=== PATIENT | female | born 1990 | race Caucasian/White ===

== ENCOUNTER 2024-09-02 15:55 | Emergency (ER) | payer OTHER, SELFPAY ==
--- OUTSIDE RECORDS SUMMARY | 2024-09-02 16:02 | XMS_ITS | Clinical Summary ---
Author Organization [facility] Healthcare Address [address] [place] [address] Care Team Providers Care Coordinate Measuring Machine Operator Name Role Phone Yo Bennett MD Primary Care Provider [phone] Lucy Yeboah NP Unavailable [phone] Allergies No known active allergies Medications lamoTRIgine (LaMICtal) 25 MG tabletIndicatio ns:Partial epilepsy (CMS/HCC) Take 1 tablet (25 mg) by mouth in the morning and 1 tablet (25 mg) before bedtime. 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 Assessment & Plan (02/06/2024 12:03 PM EST): Contacted DEJAH, pt can be seen, pt instructed to call and schedule Restart lamictal at 25mg daily for 14 days then increase to BID Fu in 6 weeks Advised of stressor, lack of sleep, caffiene can aggravate as well 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 Options for quitting smoking include: cold turkey, hypnosis, acupuncture, nicotine replacement meds (gum, lozenges, and patches), Buproprion, and Varenicline. At this time pt is encouraged to evaluate their goals for wanting to quit smoking, and reach out to provider when ready to start this process Encounters Date Type Department Care Team Description 08/31/2024 Refill [facility] [address] [place] [address] Lucy Yeboah NP Partial epilepsy ([facility]) 08/18/2024 Telephone DEJAH GANT [address] [address] Lina Daigle NP from Last 3 Months Immunizations Immunization Administration Dates Next Due DTaP 10/07/1995, 5,10/27/1993,1993, 2 HPV, Quadrivalent 07/22/2008 Hep B, adult 01/19/1996,10/27/1994,02/06/1994 HiB, unspecified 10/07/1995, 6,10/27/1993,1993, 2 IPV 05/04/1994,02/06/1994,1993 ,1991 Influenza, Unspecified 12/07/2014 MMR 10/27/1993,1993 Meningococcal MCV4O 07/22/2008 Tdap 08/02/2013,07/22/2008,02/03/2004 Social History Tobacco Use Types Packs/Day Years Used Date Smoking Tobacco: Every Day Cigarettes Smokeless Tobacco: Never Tobacco Cessation:Ready to Q uit: Not Asked; Counseling Given: Not Answered Alcohol Use Standard Drinks/Week Comments Yes 0 (1 standard drink = 0.6 oz pure alcohol) pt drinks a 6 pack of light beer per day every day. pt drinks 2 energy drinks daily PHQ-2 Answer Date Recorded Patient Health Questionnaire-2 Score 2 02/06/2024 Comments Unknown Sex and Gender Information Value Date Recorded Sex Assigned at Not on file Legal Sex Female 9:33 PM EDT Gender Identity Not on file Sexual Orientation Not on file Last Filed Vital Signs Vital Sign Reading Time Taken Comments Blood Pressure 126/84 02/06/2024 10:37 AM EST Pulse 73 02/06/2024 10:37 AM EST Temperature 36.9 C (98.5 F) 02/06/2024 10:37 AM EST Respiratory Rate 18 02/06/2024 10:37 AM EST Oxygen Saturation 97% 02/06/2024 10:37 AM EST Inhaled Oxygen Concentration - - Weight 64.9 kg (143 lb) 02/06/2024 10:37 AM EST Height 160 cm (5' 3 ) 02/06/2024 10:37 AM EST Body Mass Index 25.33 02/06/2024 10:37 AM EST Plan of Treatment Health Maintenance Due Date Last Done Comments Pap Smear 08/06/2012 Influenza Vaccine (Season Ended) 2024 12/08/19 15 Cervical Cancer Screening 05/01/2027 HPV/Cotest 05/01/2027 05/01/2022, 08/25/2018 Procedures Procedure Name Priority Date/Time Associated Diagnosis Comments THINPREP TIS PAP REFLEX HPV MRNA E6/E7 (85824) Routine 08/25/2018 from Last 3 Months or Most Recently Relevant to Health Maintenance Results * THINPREP TIS PAP REFLEX HPV MRNA E6/E7 (85230) (08/25/2018) CLINICAL INFORMATION: None given [facility] LMP: NONE GIVEN [facility] PREV. PAP: NONE GIVEN [facility] PREV. BX: NONE GIVEN [facility] SOURCE: Cervix, Endocervix [facility] STATEMENT OF ADEQUACY: SEE COMMENT [facility] Comment: Satisfactory for evaluation. Endocervical/transformation zone component present. INTERPRETATION /RESULT: Negative for intraepithelial lesion or malignancy. [facility] INFECTION: Shift in vaginal erica suggestive of bacterial vaginosis. [facility] COMMENT: This Pap test has been evaluated with computer assisted technology. [facility] CYTOTECHNOLOGI ST: SEE COMMENT [facility] Comment: JJK, CT(ASCP) CT screening location: [facility], [address] [place] [address]. COMMENT SEE COMMENT [facility] Comment: EXPLANATORY NOTE: The Pap is a screening test for cervical cancer. It is not a diagnostic test and is subject to false negative and false positive results. It is most reliable when a satisfactory sample, regularly obtained, is submitted with relevant clinical findings and history, and when the Pap result is evaluated along with historic and current clinical information. 08/25/2018 Sarai Bond DO [facility] Final Resu lt [facility] from Last 3 Months or Most Recently Relevant to Health Maintenance Insurance [employer] Care Teams Coordinate Measuring Machine Operator Relationship Specialty Start Date End Date Yo Bennett MD [address] [facility] [place] [address] PCP - General Family Medicine 11/06/23 Lucy Yeboah NP [address] [place] [address] Nurse Practitioner Family Medicine 11/06/23
--- OUTSIDE RECORDS SUMMARY | 2024-09-02 16:02 | XMS_ITS | Encounter Summary ---
Author Organization [facility] Address [address] [place] [address] Care Team Providers Care Machine Operator Replanter Name Role Phone Yo Bennett MD Primary Care Provider [phone] Lucy Yeboah NP Unavailable [phone] Encounter Details Date Type Department Care Team (Late st Contact Info) Description 08/18/2024 Telephone DEJAH ALFREDA [address] [phone] Lina Daigle NP [address] [place] [address] Social History Tobacco Use Types Packs/Day Years Used Date Smoking Tobacco: Every Day Cigarettes Smokeless Tobacco: Never Alcohol Use Standard Drinks/Week Comments Yes 0 [...] on file Sexual Orientation Not on file documented as of this encounter Miscellaneous Notes * Telephone Encounter - Lina Daigle NP - 08/19/2024 8:31 AM EDT Thank you. Yes, I would have her work with the prescribing provider (PCP) for now to manage the lamotrigine prescription. She should ensure to keep her follow-up appointment with our office on 09/15/2024, and we can consider taking over management if needed. I am uncertain as to how she got from 200 mg PO BID to 25 mg daily/BID. Will want to review this all in detail at her follow-up. * Telephone Encounter - Rio Avila MA - 08/18/2024 4:34 PM EDT Spoke with patient who states she has been consistently taking the 25 mg for some time now. She states her PCP will not prescribe higher than the 25 mg. But that she needs to be on a much higher dose. I advised her since we have not seen her in almost two and a half years, she would remain on the current dose until she is seen in the office again. She verbalized understanding. * Telephone Encounter - Lina Daigle NP - 08/18/2024 3:43 PM EDT Can you please check what dose of lamotrigine the patient is currently taking? It looks like her primary care provider prescribed this on 07/27/2024 with instructions for a starting dose and then dose increase 2 weeks later. Can you please check with the patient's primary care provider as to what their plan was with this? The last time we saw the patient, per documentation, she was to continue lamotrigine 200 mg twice a day. Looks like she is now only taking 25 mg by mouth twice a day. I am notsure what the patient has been doing with her medication since that time, as her most recent visit was in February 2022, and I have never evaluated her. Can you please ask her why her medication was reduced? * Telephone Encounter - Shira Gallardo MA - 08/18/2024 3:41 PM EDT Patient has not been seen since January 2022. It does look like her PCP has been filling this. Please advise * Telephone Encounter - Jamilah Urrutia - 08/18/2024 3:31 PM EDT Patient had to be rescheduled due to our schedule, she is in major need of refill for her Lamictal. documented in this encounter Plan of Treatment Not on file documented as of this encounter Visit Diagnoses Not on filedocumented in this encounter Care Teams Machine Operator Replanter Relationship Specialty Start Date End Date Yo Bennett MD [address] [place] [address] PCP - General Family Medicine 11/06/23 Lucy Yeboah NP [address] [place] [address] Nurse Practitioner Family Medicine 11/06/23 documented as of this encounter
--- OUTSIDE RECORDS SUMMARY | 2024-09-02 16:02 | XMS_ITS | Clinical Summary ---
Author Organization [facility] s tem Address [id number] [address] [place] [address] Care Team Providers Care Valve Seater Operator Name Role Phone No Pcp, No Pcp Primary Care Provider Unavailabl e Allergies No known active allergies Medications lamoTRIgine (LaMICtal) 200 mg tablet 2 times daily. Active ARIPiprazole (ABILIFY) 10 mg tablet Take 1 tablet (10 mg total) by mouth in the morning. Active Active Problems Problem Noted Date Diagnosed Date Smoker 07/20/2020 Immunizations Immunization Administration Dates Next Due DTaP 10/07/1995, 5,10/27/1993,1993,12/30/18 92 HPV Quadrivalent 07/22/2008 Hepatitis B 01/19/1996,10/27/1994,02/06/1994 HiB 10/07/1995, 6,10/27/1993,1993,12/30/18 92 IPV 05/04/1994,02/06/1994,1993 ,1991 Influenza, Unspecified 12/07/2014 MMR 10/27/1993,1993 Meningococcal Conjugate 07/22/2008 Tdap 08/02/2013,07/22/2008,02/03/2004 Family History Medical History Relation Name Comments No Known Problems Father Hypertension Mother Breast cancer Neg Hx Cancer Neg Hx Colon cancer Neg Hx Diabetes Neg Hx Ovarian cancer Neg Hx Stroke Neg Hx Relation Name Status Comments Father Alive Mother Alive Social History Tobacco Use Types Packs/Day Years Used Date Smoking Tobacco: Every Day Cigarettes 1 15 Smokeless Tobacco: Never Tobacco Cessation:Ready to Q uit: Not Asked; Counseling Given: Not Answered Alcohol Use Standard Drinks/Week Comments Yes 28 (1 standard drink = 0.6 oz pu re alcohol) Daily Childcare Answer Date Recorded Childcare Unknown 04/20/2019 Employment Answer Date Recorded Employment Unknown 04/20/2019 Hunger Screening Answer Date Recorded Within the past 12 months we worried whether our food would run out before we got money to buy more. Never True 11/06/2023 Within the past 12 months th e food we bought just didn't last and we didn't have money to get more. Never True 11/06/2023 Purpose - Life Answer Date Recorded Purpose and direction in life Unknown Comments No Sex and Gender Information Value Date Recorded Sex Assigned at Not on file Legal Sex Female 12:10 PM EST Gender Identity Not on file Sexual Orientation Not on file Last Filed Vital Signs Vital Sign Reading Time Taken Comments Blood Pressure 120/78 11/06/2023 8:57 AM EDT Pulse 70 07/10/2022 8:31 AM EDT Temperature - - Respiratory Rate 16 07/10/2022 8:31 AM EDT Oxygen Saturation - - Inhaled Oxygen Concentration - - Weight 60.3 kg (133 lb) 11/06/2023 8:57 AM EDT Height 161.3 cm (5' 3.5 ) 11/06/2023 8:57 AM EDT Body Mass Index 23.19 11/06/2023 8:57 AM EDT Plan of Treatment Health Maintenance Due Date Last Done Comments Tobacco Counseling 1991 Depression Screening 2003 DTaP,Tdap and Td Vaccines (9 - Td or Tdap) 08/03/2023 08/02/2013, 07/22/2008, 02/03/2004, Additional history exists Adult BMI Screening 11/05/2024 11/06/2023 Tobacco Screening 11/05/2024 11/06/2023 Influenza Vaccine 11/23/2024 12/07/2014 Pap Smear 05/01/2025 05/01/2022, 05/01/2022 Medical Devices Not on file Procedures Procedure Name Priority Date/Time Associated Diagnosis Comments HIGH RISK HPV W/UMESH Routine 05/01/2022 3:32 AM EST Cervical smear, as part of routine gynecological examination from Last 3 Months or Most Recently Relevant to Health Maintenance Results * High risk HPV w/umesh (05/01/2022 3:32 AM EST) Hpv specimen type ThinPrep 05/02/2022 3:32 AM EST [facility] Hpv 16 Negative Negative^N egative 05/03/2022 6:15 AM EST [facility] Hpv 18 Negative Negative^N egative 05/03/2022 6:15 AM EST [facility] Other high risk hpv Negative Negative^N egative 05/03/2022 6:15 AM EST [facility] Comment: HPV types 31,33,35,39,45,52,56,58,59,66 and 68 DNA were undetectable. THINP 05/01/2022 3:32 AM EST 05/02/2022 3:33 AM EST us Lucy Shaw CHIEF ADMINISTRATIVE OFFICER-PIPELINE INTEGRITY ENGINEER LAB BLOOD ORDERABLES Fin al Result Performing Organization Address City/State/[facility] Co de Phone Number [facility] [address] [facility] [place] [address] [facility] [address] [place] [address] from Last 3 Months or Most Recently Relevant to Health Maintenance Insurance [employer] [address] Care Teams Valve Seater Operator Relationship Specialty Start Date End Date No Pcp, [place] [address] PCP - General Family Medicine 07/20/20
--- OUTSIDE RECORDS SUMMARY | 2024-09-02 16:02 | XMS_ITS | Encounter Summary ---
Author Organization [facility] Address [address] [place] [address] Care Team Providers Care Tool Hardener Name Role Phone Yo Bennett MD Primary Care Provider Lucy Yeboah NP Unavailable [phone] Reason for Visit * Reason Onset Date Comments Med Refill 08/31/2024 Encounter Details Date Type Department Care Team (Late st Contact Info) Description 08/31[facility] [address] [place] [address] Lucy Yeboah, CARLOS ENRIQUE [address] [place] [address] Partial epilepsy (CMS/HCC) Social History Tobacco Use Types Packs/Day Years [...] encounter Miscellaneous Notes * Telephone Encounter - Lucy Yeboah NP - 09/01/2024 9:23 PM EDT Pt needs a fu appt scheduled to continue lamotrigine and also needs to schedule with neurology [place] documented in this encounter Plan of Treatment Not on file documented as of this encounter Visit Diagnoses Diagnosis Partial epilepsy (CMS/HCC) Localization-related (focal) (partial) epilepsy and epileptic syndromes with simple partial seizures, without mention of intractable epilepsy documented in this encounter Care Teams Tool Hardener Relationship Specialty Start Date End Date Yo Bennett MD [address] [place] [address] PCP - General Family Medicine 11/06/23 Lucy Yeboah NP [address] [place] [address] Nurse Practitioner Family Medicine 11/06/23 documented as of this encounter
--- OUTSIDE RECORDS SUMMARY | 2024-09-02 16:02 | XMS_ITS | Encounter Summary ---
Author Organization [facility] s tem Address [id number] [address] [place] [address] Care Team Providers Care Floral Associate Name Role Phone No Pcp, No Pcp Primary Care Provider Unavailabl e Encounter Details Date Type Department Care Team (Late st Contact Info) Description 12/26/2021 Telephone [facility] [address] [place] [phone] Samantha Wesley CMA Social History Tobacco Use Types Packs/Day Years Used Date Smoking Tobacco: Every Day Cigarettes 1 15 Smokeless Tobacco: Never Alcohol Use Standard Drinks/Week Comments Yes 0 (1 standard drink = 0.6 oz pur e alcohol) Daily Childcare Answer Date Recorded Childcare Unknown 04/20/2019 Employment Answer Date Recorded Employment Unknown 04/20/2019 Purpose - Life Answer Date Recorded Purpose and direction in life Unknown Comments No Sex and Gender Information Value Date Recorded Sex Assigned at Not on file Legal Sex Female 12:10 PM EST Gender Identity Not on file Sexual Orientation Not on file COVID-19 Exposure Response Date Recorded In the last month, have you been in contact with someone who was confirmed or suspected to have Coronavirus / COVID-19? No / Unsure 12/29/2021 2:07 PM EDT documented as of this encounter Miscellaneous Notes * Telephone Encounter - Samantha Wesley CMA - 12/26/2021 3:51 PM EDT Patient asked about US order again, she did state she would go to [place] * Telephone Encounter - Lucy Ceja APRN-YANNI - 12/26/2021 3:51 PM EDT Patient called and notified of repeat u/s ordered to be done in 2-3 months. documented in this encounter Plan of Treatment Not on file documented as of this encounter Visit Diagnoses Not on filedocumented in this encounter Care Teams Floral Associate Relationship Specialty Start Date End Date No Pcp, [place] [address] PCP - General Family Medicine 07/20/20 documented as of this encounter
[2024-09-02 16:04] VITALS: BP 132/87; PULSE 80; TEMP 36.6; O2SAT 99; BMI 23.9
--- NOTE | 2024-09-02 16:27 | ECG_ITS ---
[facility] Test Date: 2024-09-02 Pat Name: NOLAN JANG Department: Room: - Gender: Female Superintendent Compressor Stations: : 1990 Requested By: [id number] Order Number: [id number] Reading MD: LAINE FLANAGAN M.D. Measurements Intervals [place] Rate: 67 P: 68 AL: 158 QRS: 88 QRSD: 84 T: 79 QT: 406 QTc: 421 Interpretive Statements 1100 Sinus rhythm 9110 normal ECG Compared to ECG 04/29/2019 14:35:11 Right-axis deviation no longer present Electronically Signed On 09-02-2024 17:30:07 EDT by LAINE FLANAGAN M.D.
[2024-09-02 16:39] LABS: Basophils Absolute Auto 0.1 10^3/uL (0.0-0.1); Basophils Percent Auto 0.7 % (0.2-2.0); Eosinophils Absolute Auto 0.2 10^3/uL (0.0-0.7); Eosinophils Percent Auto 2.1 % (0.9-7.0); Hematocrit 38.4 % (36.0-48.0); Hemoglobin 13.6 g/dL (12.0-16.0); Immature Granulocytes Abs Auto 0.02 10^3/uL (0.00-0.03); Immature Granulocytes Pct Auto 0.2 % (0.0-0.5); Lymphocytes Absolute Auto 3.5 10^3/uL (1.2-3.8); Lymphocytes Percent Auto 30.1 % (20.5-60.0); Mean Corpuscular HGB Conc 35.4 g/dL (29.9-35.2); Mean Corpuscular Hemoglobin 33.3 pg (26.7-34.0); Mean Corpuscular Volume 94.1 fL (81.0-99.0); Mean Platelet Volume 9.1 fL (9.5-13.5); Monocytes Absolute Auto 0.7 10^3/uL (0.3-0.8); Monocytes Percent Auto 5.9 % (1.7-12.0); Neutrophils Absolute Auto 7.1 10^3/uL (1.4-6.5); Platelet Count 309 10^3/uL (150-450); Red Blood Count 4.08 10^6/uL (4.20-5.40); Red Cell Distribution Width 11.9 % (11.0-15.0); White Blood Count 11.6 10^3/uL (4.0-11.0)
[2024-09-02 16:47] LABS: Bilirubin Urine NEGATIVE (NEGATIVE); Blood Urine NEGATIVE (NEGATIVE); Clarity Urine CLEAR (CLEAR); Color Urine YELLOW (YELLOW); Glucose Urine UA NEGATIVE (NEGATIVE); Ketones Urine NEGATIVE (NEGATIVE); Leukocyte Esterase Urine NEGATIVE (NEGATIVE); Nitrite Urine NEGATIVE (NEGATIVE); Protein Urine NEGATIVE (NEG/TRACE); Specific Gravity Urine 1.025 (1.005-1.025); Urobilinogen Urine 0.2 EU/dL (0.2-1.0)
--- NOTE | 2024-09-02 16:50 | PC.NURSE ---
Spoke with Fabiola at [facility], information sent
[2024-09-02 16:57] LABS: Amphetamine Screen Urine NEGATIVE (NEGATIVE); Barbiturates Screen Urine NEGATIVE (NEGATIVE); Benzodiazepines Screen Urine NEGATIVE (NEGATIVE); Buprenorphine Screen Urine NEGATIVE (NEGATIVE); Cannabinoid Screen Urine POSITIVE (NEGATIVE); Cocaine Screen Urine NEGATIVE (NEGATIVE); Methadone Screen Urine NEGATIVE (NEGATIVE); Methamphetamines Screen Urine NEGATIVE (NEGATIVE); Opiate Screen Urine NEGATIVE (NEGATIVE); Oxycodone Screen Urine NEGATIVE (NEGATIVE); Phencyclidine Screen Urine NEGATIVE (NEGATIVE); Tricyclic Antidepressant Urine NEGATIVE (NEGATIVE)
[2024-09-02 17:00] LABS: Bacteria Urine MODERATE #/HPF (NONE SEEN); Cast Seen? NONE SEEN #/LPF (NONE SEEN); Crystals Seen? None Seen #/HPF (None Seen); Mucus Urine LARGE (NONE SEEN); RBC Urine 0-2 #/HPF (0-2); Squamous Epithelial Cell Urine MODERATE #/LPF (NONE/RARE); Urine Culture Indicated YES-FRMC; WBC Urine 0-2 #/HPF (NONE SEEN)
[2024-09-02 17:03] LABS: Alanine Aminotransferase 27 U/L (14-59); Albumin Globulin Ratio 1.2; Albumin Level 3.8 g/dL (3.4-5.0); Alkaline Phosphatase 108 U/L (46-116); Anion Gap 13.2; Aspartate Amino Transferase 21 U/L (15-37); BUN Creatinine Ratio 17.6; Bilirubin Total 0.6 mg/dL (0.2-1.0); Calcium 8.9 mg/dL (8.5-10.1); Carbon Dioxide 28.2 mmol/L (21.0-32.0); Chloride 102 mmol/L (98-107); Estimated GFR (African America >60 (>=60 mL/min/1.73m^2); Estimated GFR (Non-African Ame >60 (>=60 mL/min/1.73m^2); Ethanol <3 mg/dL; Globulin 3.2 g/dL; Glucose 99 mg/dL (74-106); Potassium 3.4 mmol/L (3.5-5.1); Sodium 140 mmol/L (136-145)
[2024-09-02 17:04] LABS: HCG Quantitative <1 mIU/mL
--- NOTE | 2024-09-02 17:19 | PC.NURSE ---
pt is medically cleared, spoke with Fabiola at [facility]
--- NOTE | 2024-09-02 17:31 | PC.NURSE ---
per [facility], someone will be here to evaluate pt in person around 1830 this evening
[2024-09-02 17:53] LABS: Acetaminophen <2.0 ug/mL (10.0-30.0)
--- NOTE | 2024-09-02 18:50 | ED_ITS ---
HPI - Psych General Chief Complaint: Altered Mental Status Stated Complaint: SUICIDAL Time Seen by Provider: 09/02/24 16:27 Source: Reports patient Mode of arrival: walk-in Limitations: Reports no limitations History of Present Illness HPI Narrative: 34-year-old female presents to the emergency department with complaint of increasing depression. Has been off her antiseizure and mood stabilizer medicine, Lamictal, for 1 week. Has not had time to follow-up with her neurologist to get a refill. Today, at work, she had a, breakdown, and her employer called crisis center. She presents with crisis interventionalists. Has had some fleeting thoughts of suicidal ideation over this past week. Currently, denies any suicidal ideation. Believes exacerbation of symptoms secondary to not having her medicines and the recent passing of her grandfather. Has had suicide attempt in the past. Denies any drug or alcohol use. Quality:?as above Severity:?Severe Timing:?as above Context: Normal setting and activity? Modifying factors:?as above Associated symptoms: as above Related Data Previous Rx's ?Medication ?Instructions ?Recorded lamotrigine 25 mg tablet (Lamictal) 25 mg PO BID 14 da ys #28 tabs 09/02/24 Allergies Allergy/AdvReac Type Severity Reaction Status Date / Time No Known Drug Allergies Allergy Verified 09/02/24 16:03 Review of Systems ROS Narrative CONST: Denies fever, chills EYES: Denies visual disturbance RESP: Denies shortness of breath CV: Denies chest pain, palpitations GI: Denies abd pain, nausea, vomiting : Denies dysuria, flank pain MS: Denies back pain, myalgias SKIN: Denies color change, rash NEURO: Denies numbness, weakness PSYCHIATRIC: + depressed, behavior problem. Denies agitation, confusion, hallucinations, hyperactivity, self-injury, sleep disturbance PFSH PFSH Social History Little interest or pleasure in doing things: not at all Feeling down, depressed, or hopeless: not at all Exam Narrative Exam Narrative: Vital signs reviewed Nurses notes noted CONST: Nontoxic, well appearing, well nourished, in no distress.? No diaphoresis .?? HENT: normocephalic, atraumatic, moist mucous membrane, no abnormalities of the nose noted, hearing normal EYES: normal appearing conjunctiva, no apparent discharge bilat NECK: normal appearance CV: normal rate, regular rhythm, no murmur RESP: normal effort, speaking in complete sentences, Lung sounds clear and equal bilat.? No wheezes, rales, rhonchi GI: normal bowel sounds, soft, no distension, nontender : no CVA tenderness MS: no edema, injury SKIN: no pallor NEURO: A&Ox 3, no focal deficits PSYCH: tearful affect. Normal mood. Good eye contact. Denies any suicidal or homicidal ideation. Denies any hallucinations. Constitutional Vital Signs, click to edit/add: Last Vital Signs Temp 97.8 F 09/02/24 16:04 Pulse 80 09/02/24 16:04 Resp 18 09/02/24 16:04 BP 132/87 09/02/24 16:04 Pulse Ox 99 09/02/24 16:04 O2 Del Method Room Air 09/02/24 16:04 Course Vital Signs Vital signs: Vital Signs Temperature 97.8 F 09/02/24 16:04 Pulse Rate 80 09/02/24 16:04 Respiratory Rate 18 09/02/24 16:04 Blood Pressure 132/87 09/02/24 16:04 Pulse Oximetry 99 09/02/24 16:04 Oxygen Delivery Method Room Air 09/02/24 16:04 Temperature 97.8 F 09/02/24 16:04 Pulse Rate 80 09/02/24 16:04 Respiratory Rate 18 09/02/24 16:04 Blood Pressure 132/87 09/02/24 16:04 Pulse Oximetry 99 09/02/24 16:04 Oxygen Delivery Method Room Air 09/02/24 16:04 MDM - Psych MDM Narrative Medical decision making narrative: This is a pleasant 34 female who presents to the emergency department for evaluation of breakdown, while at work. Has been out of her [facility] for 1 week as she has not been able to get in for an appointment with her neurologist. Takes this for mood stabilization and epilepsy. Also had lost her grandfather last week. Has had some fleeting thoughts of suicide. Denies any suicidal thoughts at present. On arrival, afebrile, vitals stable Exam, nontoxic, well-appearing patient in no distress. She is tearful. No other remarkable findings on examination. Heart regular rate and rhythm. Lung sounds clear and equal bilaterally. She is denying any suicidal ideation. Denies homicidal ideation, hallucinations. EKG for medical clearance reveals no acute or concerning changes Medical screening labs reveal no leukocytosis, anemia, thrombocytopenia, electrolyte imbalance, renal impairment. Glucose 99. LFTs unremarkable. test is negative. Urinalysis revealed no concerning findings. Talk screen was positive for cannabinoids. Tylenol, salicylates, alcohol not detected. Crisis service from [facility] evaluated the patient. They feel patient is stable to go home. We will give her a dose of her Lamictal. Case management will call the neurology group tomorrow to investigate why a refill has not been given for the patient as this likely prompted the events leading to her ER visit. We will also give her a prescription for 14-day supply of Lamictal. Favor depression, acute stress reaction Suicidal, homicidal ideation less likely based on history and physical History and Record Review Additional records reviewed: No records Disposition ? The patient was discharged. Prescriptions sent to pharmacy: Lamictal Plan: Patient will be discharged to home.? Condition at time of disposition: stable, improved.? Advised to follow up with primary provider. Advised to return for any worsening and/or development of new, concerning signs or symptoms PLEASE NOTE: Portions of the medical record may have been produced using electronic training officer and may contain errors with respect to translation of words which may not have been identified prior to finalization of the chart. Lab Data Attestation: I reviewed the patient's lab results. Labs: Lab Results 09/02/24 09/02/24 Range/Units 16:15 16:34 WBC 11.6 H (4.0-11.0) 10^3/uL RBC 4.08 L (4.20-5.40) 10^6/uL Hgb 13.6 (12.0-16.0) g/dL Hct 38.4 (36.0-48.0) % MCV 94.1 (81.0-99.0) fL MCH 33.3 (26.7-34.0) pg MCHC 35.4 H (29.9-35.2) g/dL RDW 11.9 (11.0-15.0) % Plt Count 309 (150-450) 10^3/uL MPV 9.1 L (9.5-13.5) fL Neut % (Auto) 61.0 (43.0-75.0) % Lymph % (Auto) 30.1 (20.5-60.0) % [place] % (Auto) 5.9 (1.7-12.0) % Eos % (Auto) 2.1 (0.9-7.0) % Baso % (Auto) 0.7 (0.2-2.0) % Neut # (Auto) 7.1 H (1.4-6.5) 10^3/uL Lymph # (Auto) 3.5 (1.2-3.8) 10^3/uL [place] # (Auto) 0.7 (0.3-0.8) 10^3/uL Eos # (Auto) 0.2 (0.0-0.7) 10^3/uL Baso # (Auto) 0.1 (0.0-0.1) 10^3/uL Abs Immat Gran (auto) 0.02 (0.00-0.03) 10^3/uL Imm/Tot Granulo (auto) 0.2 (0.0-0.5) % Sodium 140 (136-145) mmol/L Potassium 3.4 L (3.5-5.1) mmol/L Chloride 102 (98-107) mmol/L Carbon Dioxide 28.2 (21.0-32.0) mmol/L Anion Gap 13.2 BUN 13.0 (7.0-18.0) mg/dL Creatinine 0.74 (0.55-1.02) mg/dL Est GFR ( Amer) >60 (>=60 mL/min/1.73m^2) Est GFR (Non-Af Amer) >60 (>=60 mL/min/1.73m^2) BUN/Creatinine Ratio 17.6 Glucose 99 (74-106) mg/dL Calcium 8.9 (8.5-10.1) mg/dL Total Bilirubin 0.6 (0.2-1.0) mg/dL AST 21 (15-37) U/L ALT 27 (14-59) U/L Alkaline Phosphatase 108 (46-116) U/L Total Protein 7.0 (6.4-8.2) g/dL Albumin 3.8 (3.4-5.0) g/dL Globulin 3.2 g/dL Albumin/Globulin Ratio 1.2 HCG, Quant <1 mIU/mL Urine Color Yellow (YELLOW) Urine Clarity Clear (CLEAR) Urine pH 6.0 (5.0-9.0) Ur Specific [place] 1.025 (1.005-1.025) Urine Protein Negative (NEG/TRACE) mg/dL Urine Glucose (UA) Negative (NEGATIVE) mg/dL Urine Ketones Negative (NEGATIVE) mg/dL Urine Occult Blood Negative (NEGATIVE) Urine Nitrite Negative (NEGATIVE) Urine Bilirubin Negative (NEGATIVE) Urine Urobilinogen 0.2 (0.2-1.0) EU/dL Ur Leukocyte Esterase Negative (NEGATIVE) Urine RBC 0-2 (0-2) #/HPF Urine WBC 0-2 A (NONE SEEN) #/HPF Ur Squamous Epith Cells Moderate A (NONE/RARE) #/LPF Urine Crystals None seen (None Seen) #/HPF Urine Bacteria Moderate A (NONE SEEN) #/HPF Urine Casts None seen (NONE SEEN) #/LPF Urine Mucus Large A (NONE SEEN) Ur [place]icated[place] [place] 4.0 (<=19.9) mg/dL Urine Opiates Screen Negative (NEGATIVE) Ur Buprenorphine Scrn Negative (NEGATIVE) Ur Oxycodone Screen Negative (NEGATIVE) Urine Methadone Screen Negative (NEGATIVE) Acetaminophen <2.0 L (10.0-30.0) ug/mL Ur Barbiturates Screen Negative (NEGATIVE) U Tricyclic Antidepress Negative (NEGATIVE) Ur Phencyclidine Scrn Negative (NEGATIVE) Ur Amphetamines Screen Negative (NEGATIVE) U Methamphetamines Scrn Negative (NEGATIVE) U Benzodiazepines Scrn Negative (NEGATIVE) Urine Cocaine Screen Negative (NEGATIVE) U Cannabinoids Screen Positive A (NEGATIVE) Ethanol Quant <3 mg/dL ECG Data Attestation: I personally reviewed and interpreted this ECG as follows: ([id number], performed at 1622 hrs. reveals sinus rhythm at 67 bpm. No ischemia, ectopy, elevation, or other concerning changes present.) Discharge Plan Discharge Chief Complaint: Altered Mental Status Clinical Impression: Acute anxiety Depression Qualifiers: Depression Type: unspecified Qualified Code(s): F32.A - Depression, unspecified Patient Disposition: Home, Self-Care Time of Disposition Decision: 19:58 Condition: Good Mode of Transportation: Private Vehicle Prescriptions / Home Meds: New lamotrigine [Lamictal] 25 mg tablet 25 mg PO BID 14 Days Qty: 28 0RF Print Language: Norwegian Instructions: Depression (ED) Referrals: Lucy Yeboah NP [Primary Care Provider, Family Practice] - 1 week
[2024-09-02] MEDS: ACETAMINOPHEN 325 MG TABLET 975 MG PO (19:37)
[2024-09-02] MEDS: LAMOTRIGINE 25 MG TABLET PO (19:39)
== END 2024-09-02 20:17 | disposition home or self-care (01) ==
PROVIDERS: Physician Assistant; Emergency Provider Emergency Medicine; PCP Nurse Practitioner
DX: F41.0 Panic disorder [episodic paroxysmal anxiety] (principal); F32.A Depression, unspecified; Z86.69 Personal history of other diseases of the nervous system and sense organs
CPT/HCPCS: 36415; 80053; 80179; 80307; 80320; 80329; 81001; 84702; 85025; 87086; 93005; 99284